=== PATIENT | male | born 1990 | race Caucasian/White ===

== ENCOUNTER 2018-07-25 10:03 | Day surgery (SDC) | payer OTHER ==
[~2018-07-25] VITALS: Ht 172.7 cm; Wt 71.8 kg
[2018-07-25 11:39] VITALS: Ht 172.7 cm; Wt 71.8 kg
[2018-07-25] MEDS ORDERED: LIDOCAINE 4% SOLUTION 50 ML BTL ONE (11:45)
[2018-07-25 11:51] VITALS: BP 144/75; PULSE 75; RESP 18
[2018-07-25] MEDS ORDERED: NO MEDS (11:51)
[2018-07-25] MEDS ORDERED: FENTAnyl 50 MCG/ML VIAL ONE (12:41)
[2018-07-25] MEDS ORDERED: MIDAZOLAM 1 MG/ML 2 ML INJ ONE ×2 (12:41)
== END 2018-07-25 14:45 | disposition home or self-care (01) ==
LOC: GIL 10:03
PROVIDERS: ATTEND Internal Medicine Gastroenterology
DX: K29.30 Chronic superficial gastritis without bleeding (principal)
CPT/HCPCS: 43239; 88305; 88312; 88313; J2250; J3010; Z7610